=== PATIENT | male | born 1950 | race Two or more races ===

== ENCOUNTER 2020-02-29 11:59 | Emergency (ER) | payer OTHER ==
[~2020-02-29] VITALS: Ht 172.7 cm; Wt 108.9 kg
== END 2020-02-29 17:28 | disposition home or self-care (01) ==
LOC: ER 11:59
DX: R60.0 Localized edema (principal)

== ENCOUNTER 2020-07-11 07:17 | Outpatient (CLI) | payer OTHER | END 2020-07-11 07:35 | disposition home or self-care (01) | LOC: NUCLEAR 07:17 | PROVIDERS: ATTEND Internal Medicine Cardiovascular Disease | DX: I50.1 Left ventricular failure, unspecified (principal) | CPT/HCPCS: 78452; 93017; A9500; J0153 ==

== ENCOUNTER 2024-09-16 08:57 | Emergency (ER) | payer OTHER ==
[~2024-09-16] VITALS: Ht 172.7 cm; Wt 104.3 kg
[2024-09-16] MEDS ORDERED: KETOROLAC TROMETHAMINE 30 MG VIAL IM STA (12:58)
[2024-09-16] MEDS ORDERED: KETOROLAC TROMETHAMINE 30 MG VIAL ONE (13:09)
== END 2024-09-16 13:35 | disposition home or self-care (01) ==
LOC: ER 08:59
DX: G89.11 Acute pain due to trauma (principal); M25.532 Pain in left wrist; M79.602 Pain in left arm
CPT/HCPCS: 71111; 73080; 73110; 96372; 99283; J1885